=== PATIENT | male | born 1975 | race Caucasian/White ===

== ENCOUNTER → 2018-06-07 09:01 | Outpatient (CLI) | payer BC | END | disposition home or self-care (01) | LOC: D.HCCARDIO 09:01 | PROVIDERS: ATTEND Internal Medicine Cardiovascular Disease | DX: I20.9 Angina pectoris, unspecified (principal) ==

== ENCOUNTER 2018-06-29 05:56 | Outpatient (CLI) | payer BC ==
[~2018-06-29] VITALS: Ht 195.6 cm; Wt 106.8 kg
--- NOTE | ~2018-06-29 | HEMODYNAMI ---
PATIENT:GERSON GRIFFIN MEDICAL RECORD: [id number] : 73 LOCATION:[facility] ADMISSION DATE: 06/29/18 Generatedon:06/29/20188:28 Patient name: GERSON GRIFFIN Patient #: [id number] SSN: : 1975 Date of study: 06/29/2018 Page: Of Hemodynamic Procedure Report Patient Data Patient Demographics Procedure consent was obtained First Name: GERSON Gender: Male Last Name: ELIAS : 1975 Patient #: [id number] Age: 42 year(s) Race: Unknown Additional ID: [id number] Contact details [address]: [address] [place] [address] State: [place] City: [place] Zip code: [address] Admission Admission Data Admission Date: 06/29/2018 Admission Time: 5:56 Procedure Procedure Types Cath Procedure Diagnostic Procedure LHC LHC w/Coronaries Procedure Description Procedure Date Procedure Date: 06/29/2018 Procedure Start Time: 8:14 Procedure End Time: 8:23 Procedure Staff Name Function Nino Ibarra MD Performing Physician Karis Dwyer RN Nurse Gwendolyn Khan RT Scrub Charisse Arredondo RT Monitor Procedure Data Cath Procedure Fluoroscopy Diagnostic fluoroscopy Total fluoroscopy Time: 1.3 time: 1.3 min min Diagnostic fluoroscopy Total fluoroscopy dose: 401 dose: 401 mGy mGy Contrast Material Contrast Material Type Amount (ml) Isovue 300 42 Entry Location Entry Primary Successful Side Size Upsize Upsize Entry Closure Succes sful Closure Location (Fr) 1 (Fr) 2 (Fr) Remarks Device Remarks Femoral Right 5 Fr Exoseal artery Estimated blood loss: 5 ml Diagnostic catheters Device Type Used For End Catheter Placement MULTIPACK JL 4.0 5Fr Left Coronary catheter Angiography MULTIPACK 3DRC 5Fr Right Coronary catheter Angiography MULTIPACK Pigtail 5 Fr LV Angiography catheter Procedure Complications No complications Procedure Medications Medication Administration Route Dosage 0.9% NaCl I.V. 100 ml/hr Oxygen etCO2 Nasal cannula 2 l/min Lidocaine 2% added to field 20 Heparin Flush Bag added to field 2 bags (1000units/500ml NS) Versed I.V. 2 mg Fentanyl I.V. 50 mcg Versed I.V. 2 mg Fentanyl I.V. 50 mcg Hemodynamics Rest Heart Rate: 64 (bpm) Pressure Samples Time Site Value (mmHg) Purpose Heart Use Rate(bpm) 8:20 LV 140/3,16 Snapshot 67 8:21 AO 122/81(100) Pullback 69 8:21 LV 139/3,16 Pullback 69 Gradients Valve Time Site 1 Site 2 Mean SEP/DFP Peak To Heart Use (mmHg) (sec/min) Peak Rate (mmHg) (bpm) Aortic 8:21 LV AO 25 7 17 69 139/3,16 122/81(100) Calculations Valve P-P Mean Valve Index Valve Source Name Gradient Area Flow (cm2) Aortic 17 25 17 25 Snapshots Pre Cath Intra NCS Post Cath Vital Signs Time Heart Resp SPO2 etCO2 NIBP (mmHg) Rhythm Pain Sedation Rate (ipm) (%) (mmHg) Status Level (bpm) 7:53:45 62 11 100 39 148/95(112) NSR 0 (11) 10(A) , No pain 7:58:08 67 13 100 35.2 147/91(115) NSR 0 (11) 10(A) , No pain 8:02:23 68 14 97 39.7 133/80(103) NSR 0 (11) 10(A) , No pain 8:06:40 66 18 99 15 132/74(113) NSR 0 (11) 10(A) , No pain 8:10:51 65 10 100 39 131/80(100) NSR 0 (11) 9(A) , No pain 8:15:09 59 14 99 39.7 133/84(104) NSR 0 (11) 9(A) , No pain 8:19:23 65 14 100 40.4 134/87(101) NSR 0 (11) 10(A) , No pain 8:23:35 68 14 100 40.4 135/89(103) NSR 0 (11) 10(A) , No pain Medications Time Medication Route Dose Verified Delivered Reason Notes Effe ctiveness by by 7:57:34 0.9% NaCl I.V. 100 Nino Karis used for ml/hr Fred Dwyer transfer station operator 7:57:42 Oxygen etCO2 2 Nino Karis used for Nasal l/min Fred Dwyer procedure cannula RN 7:57:48 Lidocaine 2% added 20ml Nino Nino for local to vial Fred Ibarra MD anesthetic field 7:57:52 Heparin Flush added 2 Nino Nino used for Bag to bags Fred Ibarra MD procedure (1000units/500ml field NS) 8:00:58 Versed I.V. 2 mg Nino Karis for Fred Dwyer sedation RN 8:01:03 Fentanyl I.V. 50 Nino Karis for mcg Fred Dwyer sedation RN 8:06:02 Versed I.V. 2 mg Nino Karis for Fred Dwyer sedation RN 8:06:07 Fentanyl I.V. 50 Nino Karis for mcg Fred Dwyer sedation upsetter setter up Log Time Note 7:41:18 Karis Dwyer RN sent for patient. Start room use. 7:41:19 Time tracking: Regular hours (M-F 7:00 - 5:00) 7:41:24 Plan of Care:Hemodynamics will remain stable., Cardiac rhythm will remain stable., Comfort level will be maintained., Respiratory function will remain adequate., Patient/ family verbilizes understanding of procedure., Procedure tolerated without complication., Recovers from procedure without complications.. 7:46:00 Signed procedure consent form obtained from patient. 7:46:10 Patient received from Pre/Post Procedure Room to CCL 1 Alert and oriented. Tansferred to table in Supine position. 7:46:11 Warm blankets applied, and ashia hugger turned on for patient comfort. 7:46:12 Correct patient and procedure confirmed by team. 7:46:12 ECG and BP/O2 sat monitors applied to patient. 7:52:32 Vital chart was started 7:55:16 Baseline sample Acquired. 7:55:29 Rhythm: sinus rhythm 7:55:30 Full Disclosure recording started 7:55:35 H&P Date Dictated: 06/29/2018 Within 30 days and on chart., H&P Addendum completed by physician on day of procedure. (MUST COMPLETE FOR ALL OUTPATIENTS). 7:55:37 Pre-procedure instructions explained to patient. 7:55:38 Pre-op teaching completed and patient verbalized understanding. 7:55:39 Family in waiting room. 7:55:41 Patient NPO since Midnight. 7:55:43 Is the patient allergic to Iodine/contrast media? No. 7:55:44 Was the patient premedicated? No 7:56:57 Is patient on blood thinner?No 7:56:58 Patient diabetic? No. 7:57:01 Previous problem with sedation/anesthesia? No ? 7:57:03 Snore? Yes 7:57:04 Sleep apnea? No 7:57:05 Deviated septum? No 7:57:06 Opens mouth fully? Yes 7:57:06 Sticks out tongue? Yes 7:57:23 Airway obstruction? No ? 7:57:27 Dentures? No ? 7:57:33 Pre procedure: right dorsailis pedis pulse 2+ Normal; easily identifiable; not easily obliterated 7:57:34 0.9% NaCl 100 ml/hr I.V. was administered by Karis Dwyer RN; used for procedure; 7:57:36 Pre procedure: left dorsailis pedis pulse 2+ Normal; easily identifiable; not easily obliterated 7:57:40 Patient pain scale 0/10 ?. 7:57:42 Oxygen 2 l/min etCO2 Nasal cannula was administered by Karis Dwyer RN; used for procedure; 7:57:48 Lidocaine 2% 20ml vial added to field was administered by Nino Ibarra MD; for local anesthetic; 7:57:52 Heparin Flush Bag (1000units/500ml NS) 2 bags added to field was administered by Nino Ibarra MD; used for procedure; 7:57:59 IV patent on arrival in left forearm with 0.9% NaCl at [facility]. 7:58:01 Lab results completed and on chart. 7:58:06 Right groin area was prepped with chlora-prep and draped in sterile fashion 7:58:07 Alarms reviewed by R. N. 7:58:08 Sharps counted by scrub and verified by R.N. 7:58:09 Physician arrived 7:58:10 --------ALL STOP TIME OUT------ 7:58:10 Final Timeout: patient, procedure, and site verified with staff and physician. All members of the team are in agreement. 7:58:13 Right groin site verified by team. 7:58:18 Maximum allowable Isovue 370 dose 300ml. Physician notified. (300ml for normal creatinines. For patients with creatinine of 1.7 or higher multiply weight(kg) x 5 divided by creatinine.) 7:58:23 Fire Safety Assessment: A--An alcohol-based skin anteseptic being used preoperatively., C--Open oxygen or nitrous oxide is being used., D--An ESU, laser, or fiber-optic light is being used. 7:58:27 Physical assessment completed. ASA score P 2 - A patient with mild systemic disease as per Nino Ibarra MD. 7:58:30 Sedation plan: IV Moderate Sedation Medication:Versed, Fentanyl 7:58:36 Use device set Femoral Dx 7:58:37 ACIST Syringe (21083) opened to sterile field. 7:58:37 Bag Decanter (2002S) opened to sterile field. 7:58:38 Medline Cath Pack ([id number]) opened to sterile field. 7:58:38 DIAGNOSTIC WIRE .035 260cm J wire (266133) opened to sterile field. 7:58:40 ACIST Hand Control (03205) opened to sterile field. 7:58:40 ACIST Manifold (59413) opened to sterile field. 7:58:41 DIAGNOSTIC Multipack 5Fr catheter set ([id number]) opened to sterile field. 7:58:41 Tegaderm 4 x 4 (1626W) opened to sterile field. 7:58:43 SHEATH 5FR [place] ([id number]) opened to sterile field. 8:00:58 Versed 2 mg I.V. was administered by Karis Dwyer RN; for sedation; 8:01:03 Fentanyl 50 mcg I.V. was administered by Karis Dwyer RN; for sedation; 8:01:26 Zero performed for pressure channel P1 8:06:02 Versed 2 mg I.V. was administered by Karis Dwyer RN; for sedation; 8:06:07 Fentanyl 50 mcg I.V. was administered by Karis Dwyer RN; for sedation; 8:14:16 Procedure started. 8:14:20 Local anesthetic to right femoral artery with Lidocaine 2% by Nino Ibarra MD.INITIAL ACCESS ONLY 8:15:23 A 5 Fr sheath was inserted into the Right Femoral artery 8:15:32 A MULTIPACK JL 4.0 5Fr catheter was advanced over the wire and used for Left Coronary Angiography. 8:16:49 LCA angiography performed. 8:16:53 Injector settings: Ml/sec: 3, Volume: 6, 8:18:00 Catheter removed. 8:18:09 A MULTIPACK 3DRC 5Fr catheter was advanced over the wire and used for Right Coronary Angiography. 8:19:18 Injector settings: Ml/sec: 3, Volume: 6, 8:19:21 Catheter removed. 8:19:26 A MULTIPACK Pigtail 5 Fr catheter was advanced over the wire and used for LV Angiography. 8:20:47 LV hemodynamics recorded. 8:20:48 LV gram done using AGEE 8:20:50 Injector settings: Ml/sec: 5, Volume: 15, 8:20:57 EF : 55 % 8:21:10 EXOSEAL 5Fr (EX500) opened to sterile field. 8:21:14 Catheter removed. 8:21:53 Sheath removed intact; hemostasis achieved with Exoseal to the Right Femoral artery. 8:21:55 Procedure ended.(Physican Out) 8:22:25 Fluoroscopy time 01.30 minutes. 8:22:30 Fluoroscopy dose: 401 mGy 8:22:30 Flurop Dose total: 401 8:22:37 Contrast amount:Isovue 300 42ml. 8:22:38 Sharps counted by scrub and verified by R.N. 8:22:40 Insertion/operative site no bleeding no hematoma. 8:22:43 Post-op/insertion site Right Femoral artery dressed using a 4 x 4 and Tegaderm. 8:23:01 Post Procedure Pulses reassessed and unchanged 8:23:04 Post procedure rhythm: unchanged. 8:23:07 Estimated blood loss: 5 ml 8:23:12 Post procedure instruction explained to patient.Patient verbalizes understanding. 8:23:12 Patient needs reinforcement of post procedure teaching. 8:23:22 Procedure and supply charges have been captured, reviewed, submitted and are correct. 8:23:26 Procedure Complication : No complications 8:23:31 Vital chart was stopped 8:23:32 See physician's report for complete and final results. 8:23:35 Report given to Pre/Post Procedure Room. 8:23:38 Patient transfered to Pre/Post Procedure Room with Stretcher. 8:23:41 Procedure ended. 8:23:41 Full Disclosure recording stopped 8:23:49 End room use (Document Last) Device Usage Item Name Manufacture Quantity Catalog Hospital Part Current Minimal L ot# / Number Charge Number Stock Stock Serial# Code ACIST Acist 1 37682 495472 161065 962522 20 Syringe Medical (85932) Systems Inc Bag Microtek 1 2001S 294910 45330 485769 5 Decanter Medical Inc. () Medline Medline 1 [id number] 087403 22952 412115 5 Cath Pack ([id number]) DIAGNOSTIC [facility] 1 519335 255198 554450 472115 30 WIRE .035 260cm J wire (651997) ACIST Hand Acist 1 76615 177446 717293 243775 5 Control Medical (88273) Systems Inc ACIST Acist 1 38133 636870 128089 979839 5 Manifold Medical (93977) Systems Inc DIAGNOSTIC Cardinal 1 CA9579 777377 29975 311507 30 Multipack Health 5Fr catheter set (YJ3729) Tegaderm 4 3M 1 1626W 523629 819718 769652 5 x 4 (1626W) SHEATH 5FR Terumo 1 WAE422 048796 833808 087478 5 [place] (UCS553) MULTIPACK Cardinal 1 039411 5 JL 4.0 5Fr Health catheter MULTIPACK Cardinal 1 820758 5 3DRC 5Fr Health catheter MULTIPACK Cardinal 1 436723 5 Pigtail 5 Health Fr catheter EXOSEAL 5Fr Cardinal 1 EX500 502232 266154 099246 10 (EX500) Health Signature Audit [place] Stage Time Signature Unsigned Intra-Procedure 06/29/2018 Charisse Arredondo 8:28:47 AM RT(R) Signatures Monitor : Charisse Arredondo RT Signature : Date : Time : [facility] [address] [id number]
[2018-06-29] MEDS ORDERED: CATAPRES0.1 MG PO (06:21)
[2018-06-29] MEDS ORDERED: HCTZ25 MG PO (06:21)
[2018-06-29] MEDS ORDERED: NORVASC10 MG PO (06:21)
[2018-06-29 06:31] VITALS: BP 162/91; Ht 195.6 cm; Wt 106.8 kg
[2018-06-29 06:38] LABS: BASOPHILS 0.3 % (0-2); EOSINOPHILS 3.1 % (0-7); HEMATOCRIT 44.8 % (42.0-54.0); HEMOGLOBIN 15.9 g/dL (13.5-17.5); IMMATURE GRANULOCYTES 0.1 % (0-5); LYMPHOCYTES 20.6 % (15-50); MCH 30.1 pg (26.0-34.0); MCHC 35.5 g/dL (31.0-37.0); MCV 84.8 fL (80.0-100.0); MONOCYTES 10.2 % (2-11); NEUTROPHILS 65.7 % (40-80); PLATELET COUNT 236 10x3/uL (130-400); RBC 5.28 10x6/uL (4.20-6.10); RDW 12.3 % (11.5-14.5); WBC 6.8 10x3/uL (4.8-10.8)
[2018-06-29 06:57] LABS: ANION GAP 10.2 mmol/L (8-16); CALCIUM 9.3 mg/dL (8.5-10.1); CARBON DIOXIDE 29.9 mmol/L (21.0-32.0); CREATININE - SERUM 1.4 mg/dL (0.6-1.3); POTASSIUM - SERUM 3.1 mmol/L (3.5-5.1)
--- NOTE | 2018-06-29 08:30 | NUR ---
PT RECEIVED VIA STRETCHER FROM CAR MOVER POST PROCEDURE FOR RECOVERY. PT DROWSY BUT VERBALLY AROUSABLE. 5 FR EXOCELE TO R GROIN, DRESSING CDI NO BLEEDING OR HEMATOMA NOTED. LEG PINK AND WARM, PEDAL PULSES PALPABLE. HR NSR RATE 67, BP 128/84, O2 SAT 97 ON 2L/NC. PT AND INSTRUCTED FOR HIM TO KEEP HEAD ON PILLOW AND R LEG STRAIGHT. BOTH VERBALIZED UNDERSTANDING. CALLL LIGHT IN REACH AND FAMILY AT BEDSIDE. IV PATENT INFUSING VIA ORDERS.
--- NOTE | 2018-06-29 09:15 | NUR ---
PT RESTING COMFORTABLY, DENIES PAIN OR NEEDS. R GROIN REMAINS SOFT NO BLEEDING OR SWELLING NOTED. CALL LIGHT IN REACH, AT BEDSIDE
--- NOTE | 2018-06-29 09:45 | NUR ---
PT DOING WELL, R GROIN SOFT NO BLEEDING OR SWELLING NOTED. PT DENIES PAIN OR NEEDS. CALL LIGHT IN REACH AND AT BEDSIDE.
--- NOTE | 2018-06-29 10:04 | NUR ---
HOB ELEVATED, R GROIN REMAINS SOFT DRESSING CDI NO BLEEDING OR SWELLING NOTED. R LEG REMAINS WARM AND PINK, PEDAL PULSES PALPABLE. PT DENIES PAIN OR NEEDS. SANDWICH SERVED. CALL LIGHT IN REACH.
--- NOTE | 2018-06-29 10:20 | NUR ---
R GROIN SOFT, NO BLEEDING OR HEMATOMA NOTED. DISCHARGE INSTRUCTIONS REVIEWED W PT AND , BOTH VERBALIZED UNDERSTANDING. IV REMOVED W CATH INTACT, MONITORS REMOVED AND PT UP TO DRESS FOR DISCHARGE.
--- NOTE | 2018-06-29 10:35 | NUR ---
PT DISCHARGED VIA WC TO PRIVATE VEHICLE WITH ALL BELONGINGS.
== END 2018-06-29 10:35 | disposition home or self-care (01) ==
LOC: D.CATH 05:56
PROVIDERS: ATTEND Internal Medicine Cardiovascular Disease
DX: I20.9 Angina pectoris, unspecified (principal); R94.30 Abnormal result of cardiovascular function study, unspecified; Z01.812 Encounter for preprocedural laboratory examination